=== PATIENT | female | born 1975 | race Caucasian/White ===

== ENCOUNTER 2018-11-18 12:05 | Inpatient (IN) | payer MEDICARE ==
[2018-11-18 16:54] VITALS: BMI 30.3
[2018-11-18] MEDS ORDERED: ZIPRASIDONE 20 MG VIAL IM PRN (17:02)
[2018-11-18] MEDS: HALOPERIDOL LACTATE 5 MG/ML 1 ML VIAL IM PRN (17:21)
[2018-11-18] MEDS: LORazepam 2 MG/ML INJ IM PRN (17:24)
[2018-11-19] MEDS: HALOPERIDOL LACTATE 5 MG/ML 1 ML VIAL IM PRN ×2 (00:20→18:10)
[2018-11-19] MEDS: LORazepam 2 MG/ML INJ IM PRN ×5 (05:21→19:21)
--- NOTE | 2018-11-19 10:01 | P.DS ---
Providers Date of admission: 11/18/18 15:58 Expected date of discharge: 11/19/18 Attending physician: Anderson Amador Consults: 11/18/18 17:05 Consult Physician Stat Consulting Provider: Eleni Moser Consult Reason/Comments: suicidal/homicidal/psychosis Do you want consulting provider notified?: Already Contacted Placement Type Exists?: Yes Primary care physician: [facility] Course: -Intentional polysubstance overdose , Tylenol and salicylate ingestion -S/P toxic and metabolic encephalopathy secondary to the above -Depression, Suicidal -Anxiety -Hypokalemia, resolved -Diabetes mellitus type 2 -Hypertension Please refer to [facility] DOcumentation on chart By Dr. Elizalde, Dr. Amador's H & P for specifics. Patient initially was initially brought into [facility],transferred to [facility] for psychiatry evaluation. Electrolyte have normalized, vital signs stable. Currently in soft restraints X 3. Patient is medically cleared for discharge to MHU, in a stable condition with her prognosis.. EXAM: General: Alert and oriented 3, no acute distress CV: Regular S1 and S2, no murmur rubs or gallops LUNGS: Respiratory effort unlabored, lungs clear with no rhonchi wheezing or crackles ABD: Soft, nontender, positive bowel sounds The impression and plan of care has been dictated as directed. : I performed a history and examination of this patient, discussed the same with the dictator. I agree with the dictator's note ,documented as a scribe. Any additional findings or plans will be noted. Time taken: 35 minutes Patient Condition at Discharge: Stable Plan - Discharge Summary Discharge Rx Participant: No Activity/Diet/Wound Care/Special Instructions: To mental health unit Haldol 5mg IM Q 6h PRN Ativan 2mg IM Q3H prn Discharge Disposition: TRANSFER TO PSYCH HOSP/UNIT
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
[2018-11-19 13:17] VITALS: RESP 16
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
[2018-11-19 21:53] VITALS: BP 135/87; PULSE 92; TEMP 98.5
== END 2018-11-19 22:25 | DRG 917 ==
LOC: 4MS4W 15:58
PROVIDERS: ADMIT Family Medicine; ATTEND Family Medicine
DX: T39.1X2A Poisoning by 4-Aminophenol derivatives, intentional self-harm, initial encounter (principal); G92 Toxic encephalopathy; T39.092A Poisoning by salicylates, intentional self-harm, initial encounter; E11.9 Type 2 diabetes mellitus without complications; E87.6 Hypokalemia; F31.9 Bipolar disorder, unspecified; G43.909 Migraine, unspecified, not intractable, without status migrainosus; F41.9 Anxiety disorder, unspecified; I10 Essential (primary) hypertension; Z78.1 Physical restraint status; Z95.0 Presence of cardiac pacemaker; Y92.9 Unspecified place or not applicable
CPT/HCPCS: 84132

== ENCOUNTER 2018-11-19 21:58 | Inpatient (IN) | payer MEDICARE, MEDICAID ==
[2018-11-19] MEDS ORDERED: MAGNESIUM HYDROXIDE 2,400 MG/10 ML CUP PO PRN (22:07)
[2018-11-19] MEDS ORDERED: MAG HYDROX/AL HYDROX/SIMETH 30 ML CUP PO PRN (22:07)
[2018-11-19] MEDS ORDERED: LORazepam 2 MG/ML INJ IM PRN (22:18)
[2018-11-19] MEDS: ZIPRASIDONE 20 MG VIAL IM PRN (23:01)
[2018-11-20] MEDS: LORazepam 1 MG TAB PO PRN ×4 (00:04→18:42)
[2018-11-20 07:43] LABS: Glucose,Whole Blood 128 mg/dL (75-99)
[2018-11-20 08:54] LABS: ALT 31 U/L (9-52); AST 45 U/L (14-36); African American GFR (CKD) >90 (>60 ml/min/1.73 sqM); Alkaline Phosphatase 85 U/L (38-126); Anion Gap 6 mmol/L; Blood Urea Nitrogen 13 mg/dL (7-17); Calcium 9.4 mg/dL (8.4-10.2); Carbon Dioxide 25 mmol/L (22-30); Chloride 110 mmol/L (98-107); Cholesterol 168 mg/dL (<200); Glucose 198 mg/dL (74-99); HDL Cholesterol 50 mg/dL (40-60); LDL Cholesterol,Calculated 86 mg/dL (0-99); Potassium 3.9 mmol/L (3.5-5.1); Sodium 141 mmol/L (137-145); Total Bilirubin 0.5 mg/dL (0.2-1.3); Total Protein 6.3 g/dL (6.3-8.2); Triglycerides 158 mg/dL (<150)
[2018-11-20] MEDS: ZIPRASIDONE 20 MG VIAL IM PRN (10:44)
[2018-11-20] MEDS ORDERED: HALOPERIDOL LACTATE 5 MG/ML 1 ML VIAL IM PRN (11:00)
[2018-11-20] MEDS ORDERED: LORazepam 2 MG/ML INJ IM PRN (11:02)
[2018-11-20] MEDS: ACETAMINOPHEN TAB 325 MG TAB PO PRN (11:58)
[2018-11-20 12:42] LABS: Glucose,Whole Blood 144 mg/dL (75-99)
[2018-11-20] MEDS: NICOTINE 21MG/24HR PATCH TRANSDERM SCH (14:53)
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
[2018-11-20 16:57] LABS: Glucose,Whole Blood 140 mg/dL (75-99)
[2018-11-20] MEDS: GABAPENTIN 300 MG CAP PO SCH ×2 (17:18→21:40)
[2018-11-20 18:22] LABS: Hemoglobin A1C 6.4 % (4.0-6.0)
[2018-11-20 20:17] LABS: Glucose,Whole Blood 154 mg/dL (75-99)
[2018-11-20] MEDS: ARIPiprazole 10 MG TAB PO SCH (21:39)
[2018-11-20] MEDS: MELATONIN 3 MG TABLET PO SCH (21:39)
[2018-11-20] MEDS: HALOPERIDOL 5 MG TAB PO PRN (21:40)
[2018-11-20] MEDS: BACITRACIN/POLYMYX 500-10,000 UNIT/GM OINT 14 GM TUBE TOPICAL SCH (22:15)
[2018-11-21] MEDS: LORazepam 1 MG TAB PO PRN ×5 (06:32→23:28)
[2018-11-21 06:40] LABS: Glucose,Whole Blood 127 mg/dL (75-99)
[2018-11-21] MEDS: NICOTINE 21MG/24HR PATCH TRANSDERM SCH (08:48)
[2018-11-21] MEDS: BACITRACIN/POLYMYX 500-10,000 UNIT/GM OINT 14 GM TUBE TOPICAL SCH ×2 (08:49→21:31)
[2018-11-21] MEDS: GABAPENTIN 300 MG CAP PO SCH ×3 (08:53→21:21)
[2018-11-21] MEDS: ACETAMINOPHEN TAB 325 MG TAB PO PRN ×3 (08:56→22:11)
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
[2018-11-21 12:38] LABS: Glucose,Whole Blood 131 mg/dL (75-99)
[2018-11-21] MEDS: HALOPERIDOL 5 MG TAB PO PRN ×2 (16:22→21:22)
[2018-11-21 17:35] LABS: Glucose,Whole Blood 130 mg/dL (75-99)
[2018-11-21] MEDS: IBUPROFEN 600 MG TAB PO PRN (18:20)
[2018-11-21 20:22] LABS: Glucose,Whole Blood 121 mg/dL (75-99)
[2018-11-21] MEDS: MELATONIN 3 MG TABLET PO SCH (21:20)
[2018-11-21] MEDS: cloNIDine HCL 0.1 MG TAB PO SCH (21:20)
[2018-11-21] MEDS: ARIPiprazole 10 MG TAB PO SCH (21:20)
[2018-11-22 06:31] LABS: Glucose,Whole Blood 141 mg/dL (75-99)
[2018-11-22] MEDS: LORazepam 1 MG TAB PO PRN ×4 (06:32→20:29)
[2018-11-22] MEDS: IBUPROFEN 600 MG TAB PO PRN ×3 (06:32→20:30)
[2018-11-22] MEDS: BACITRACIN/POLYMYX 500-10,000 UNIT/GM OINT 14 GM TUBE TOPICAL SCH ×2 (06:35→20:39)
[2018-11-22] MEDS ORDERED: metFORMIN 500 MG TAB PO SCH (07:30)
[2018-11-22] MEDS: cloNIDine HCL 0.1 MG TAB PO SCH ×2 (08:23→20:29)
[2018-11-22] MEDS: GABAPENTIN 300 MG CAP PO SCH ×3 (08:23→20:29)
[2018-11-22] MEDS: NICOTINE 21MG/24HR PATCH TRANSDERM SCH (08:23)
[2018-11-22] MEDS: ACETAMINOPHEN TAB 325 MG TAB PO PRN ×2 (11:33→15:41)
--- NOTE | 2018-11-22 12:08 | P.PN ---
Progress Note - Text Progress Note Date: 11/22/18 Interval history: Patient is seen in cross coverage today. She reports that she's been feeling more depressed today. She does describe discomfort with her arm today. She does not seem to voice any adverse psychotropic medication side effects. It sounds like she has been staying mostly in her room today. Mental status exam: She is alert and cooperative with the interview. Her speech is fluent, not rapid or pressured. She denies any current thoughts of harm to self, relay she had thoughts of harming herself yesterday. She does not voice any thoughts of harm to others. No evidence of active psychosis or agitation. Plan: Patient be maintained on current psychotropic medication regimen. We'll continue to monitor regarding any suicidal ideations. Continue to monitor for any psychotropic medication side effects. We'll continue to cover this patient through the weekend.
[2018-11-22 12:36] LABS: Glucose,Whole Blood 126 mg/dL (75-99)
[2018-11-22] MEDS: HALOPERIDOL 5 MG TAB PO PRN (13:45)
[2018-11-22 17:37] LABS: Glucose,Whole Blood 197 mg/dL (75-99)
[2018-11-22 20:23] LABS: Glucose,Whole Blood 152 mg/dL (75-99)
[2018-11-22] MEDS: MELATONIN 3 MG TABLET PO SCH (20:29)
[2018-11-22] MEDS: ARIPiprazole 10 MG TAB PO SCH (20:29)
[2018-11-23] MEDS: LORazepam 1 MG TAB PO PRN ×4 (03:58→20:14)
[2018-11-23 06:30] LABS: Glucose,Whole Blood 134 mg/dL (75-99)
[2018-11-23] MEDS: NICOTINE 21MG/24HR PATCH TRANSDERM SCH (08:18)
[2018-11-23] MEDS: cloNIDine HCL 0.1 MG TAB PO SCH ×2 (08:18→21:48)
[2018-11-23] MEDS: GABAPENTIN 300 MG CAP PO SCH ×3 (08:18→21:48)
[2018-11-23] MEDS: ACETAMINOPHEN TAB 325 MG TAB PO PRN (08:20)
[2018-11-23] MEDS: HALOPERIDOL 5 MG TAB PO PRN ×3 (08:21→21:47)
[2018-11-23] MEDS: BACITRACIN/POLYMYX 500-10,000 UNIT/GM OINT 14 GM TUBE TOPICAL SCH ×2 (10:21→21:50)
[2018-11-23] MEDS: IBUPROFEN 600 MG TAB PO PRN ×2 (12:52→21:48)
[2018-11-23 13:05] LABS: Glucose,Whole Blood 154 mg/dL (75-99)
--- NOTE | 2018-11-23 14:36 | P.PN ---
Progress Note - Text Progress Note Date: 11/23/18 Interval history: Patient is seen in cross coverage again today. She describes that she is going to groups but when she is not in group she is isolating to her room and she is sleeping a lot. She describes crying spells. She describes her mood fluctuating. She does not seem to voice any adverse psychotropic medication side effects. She does relays still discomfort with her arm. Mental status exam: She is alert and cooperative with the interview. Her speech is fluent, not rapid or pressured. Her thought processes are organized. Her mood is depressed. She admits to some ongoing thoughts about suicide but reports she feels safe here on the unit. Her affect is restricted. She does not show any agitation. She does describe having some irritability. No evidence of active psychosis. Plan: Patient will be maintained on current psychotropic medication regimen. Continue to monitor mood and monitor regarding any thoughts of suicide. Monitor for any psychotropic medication side effects.
[2018-11-23 17:56] LABS: Glucose,Whole Blood 152 mg/dL (75-99)
[2018-11-23 20:41] LABS: Glucose,Whole Blood 148 mg/dL (75-99)
[2018-11-23] MEDS: ARIPiprazole 10 MG TAB PO SCH (21:48)
[2018-11-23] MEDS: MELATONIN 3 MG TABLET PO SCH (21:48)
[2018-11-24] MEDS: LORazepam 1 MG TAB PO PRN ×4 (06:10→20:13)
[2018-11-24 06:39] LABS: Glucose,Whole Blood 135 mg/dL (75-99)
[2018-11-24] MEDS: cloNIDine HCL 0.1 MG TAB PO SCH ×2 (08:45→20:14)
[2018-11-24] MEDS: BACITRACIN/POLYMYX 500-10,000 UNIT/GM OINT 14 GM TUBE TOPICAL SCH ×2 (08:45→20:14)
[2018-11-24] MEDS: NICOTINE 21MG/24HR PATCH TRANSDERM SCH (08:45)
[2018-11-24] MEDS: GABAPENTIN 300 MG CAP PO SCH ×3 (08:46→20:14)
[2018-11-24] MEDS: HALOPERIDOL 5 MG TAB PO PRN ×3 (08:47→17:39)
[2018-11-24] MEDS: IBUPROFEN 600 MG TAB PO PRN (10:37)
[2018-11-24 12:06] LABS: Glucose,Whole Blood 199 mg/dL (75-99)
--- NOTE | 2018-11-24 12:31 | P.PN ---
Progress Note - Text Progress Note Date: 11/24/18 Interval History: Patient is a 43-year-old female who was seen today she reports that she continues to feel anxious and irritable and easily aggravated attending some groups but spending most of the time in her room sleeping. She states that she was up at 3 AM last night but has been sleeping a lot during the day she states that she has been angry and irritable and agitated at home but never like she was during this admission. She states she continues to feel depressed and sad and the suicidal thoughts continue telling me that she was discharged she would just go ahead and kill herself because she sees no reason to live. Patient reports that she has no side effects from the medication and has continued to request as needed Haldol and Ativan for her episodes of anger, and irritability. She states the pain in her left arm is improved using the ibuprofen and that the abrasions on her right arm have improved using the topical ointment. Patient states that when she was at home she was using marijuana to control her anger Mental Status: Appearance/Attitude: Patient is dressed appropriately, makes eye contact and was cooperative Behavior: Patient did not display any psychomotor agitation or retardation, patient remains easily irritated Speech/Language: Patient's speech is spontaneous of normal volume and rhythm and she is coherent Thought Process: Patient is goal-directed there is no evidence of loose associations or flight of ideas Thought Content: Patient denies any auditory or visual hallucinations no delusions or paranoid ideation or elicited. Patient continues to express a sense of hopelessness and worthlessness stating that she just wants to and continues to report feeling easily irritated, angry and on edge. Patient states that she slept until 3 AM last evening but states that she spends the bulk of her days in her room because the groups and other peers irritate her. She states that she is eating. Patient states that her sister visited her over the weekend and her children continue to refuse to contact her Suicidal/Homicidal Ideation: Patient reports continued suicidal thoughts with no current plan or intent to act states that she sees no reason to live and she denies any current homicidal ideation Sensorium/Cognition: Patient is alert and oriented to person, place, and time and her recent and remote memory are grossly intact Mood/Affect: Patient's mood remains depressed and her affect blunted Insight/Judgment: Patient's insight and judgment are fair Assessment: Patient continues to report feeling easily irritated and agitated requesting when necessary Haldol and Ativan, patient spends the bulk of her days in her room stating that the groups and peers irritate and agitate her. She is sleeping during the day states that her appetite is good. She reports a visit with her sister over the weekend went well but her children continue to refuse to contact her. Patient sees no reason to continue living and states that she continues to have suicidal thoughts and feels hopeless and worthless. Plan: Will increase patient's Abilify to 15 mg to target her mood symptoms and patient continues to require inpatient treatment to target her mood symptoms and suicidal ideation. Patient was encouraged to attend groups and activities and encouraged to continue to speak with staff when feeling irritable and agitated. color consultant's contacted regarding the patient's elevated blood sugars and will change her Accu-Cheks to fasting only unless ordered differently by the medical device assembler.
[2018-11-24] MEDS: ARIPiprazole 15 MG TAB PO SCH (20:13)
[2018-11-24] MEDS: MELATONIN 3 MG TABLET PO SCH (20:14)
[2018-11-25] MEDS: LORazepam 1 MG TAB PO PRN ×4 (04:59→22:42)
[2018-11-25] MEDS: IBUPROFEN 600 MG TAB PO PRN ×2 (05:00→22:42)
[2018-11-25 06:12] LABS: Glucose,Whole Blood 139 mg/dL (75-99)
[2018-11-25] MEDS: cloNIDine HCL 0.1 MG TAB PO SCH ×2 (08:52→22:31)
[2018-11-25] MEDS: GABAPENTIN 300 MG CAP PO SCH ×3 (08:52→22:31)
[2018-11-25] MEDS: NICOTINE 21MG/24HR PATCH TRANSDERM SCH (08:52)
[2018-11-25] MEDS: BACITRACIN/POLYMYX 500-10,000 UNIT/GM OINT 14 GM TUBE TOPICAL SCH ×2 (08:53→22:38)
[2018-11-25] MEDS: HALOPERIDOL 5 MG TAB PO PRN ×2 (08:54→15:37)
[2018-11-25] MEDS ORDERED: hydrOXYzine PAMOATE 25 MG CAP PO PRN (09:58)
--- NOTE | 2018-11-25 14:43 | P.PN ---
Progress Note - Text Progress Note Date: 11/25/18 Interval History: Patient is a 43-year-old female who was seen today and she reports that she continues to feel very depressed, states that she hates herself but is less irritable and states that she attempted to attend some groups today. She stated that she doesn't want to be here she wants to be home has no active suicidal plan but states that she does hate herself. Patient states that she spoke with her daughters and understands that they obtained temporary guardianship yesterday to help her with legal issues that she currently has. She states that in one month there will be a full hearing. She stated that her plans when she leaves here or to live in the [place] on the property where her father lives but cannot stay in the same home and that her youngest daughter wants her to move with her to [place] to live. Patient states that she slept about 6 hours last night and is been feeling more awake during the day. She continues to report feeling tearful and depressed and at times anxious and on edge. Patient states that she did use marijuana in the past on a daily basis to assist her anger and irritability Mental Status: Appearance/Attitude: Patient is neatly and appropriately dressed, makes eye contact and was cooperative. Behavior: Patient does not exhibit any psychomotor agitation or retardation Speech/Language: Patient's speech is spontaneous of normal volume and rhythm and she is coherent Thought Process: Patient is goal-directed there is no evidence of loose association or flight of ideas Thought Content: Patient denies any auditory or visual hallucinations no delusions or paranoid ideation is elicited. Patient continues to state that she hates herself feels extremely depressed and is less irritable. She states that she has no active suicidal plans but would like to . She feels that her life is not worth living. Patient states that she slept last night and has been eating. She states that she attempted to attend a group today because she was feeling less irritable. Patient does report feeling anxious and on edge. Suicidal/Homicidal Ideation: Patient reports no current homicidal ideation but continues to report hating herself, wanting to but no active plans or intent to act at this time Sensorium/Cognition: Patient is alert and oriented to person, place, and time and her recent and remote memory are grossly intact. Mood/Affect: His mood remains depressed and irritable and her affect is appropriate to her mood Insight/Judgment: Symptoms insight and judgment are fair Assessment: Patient continues to require when necessary medication receiving 3 doses of oral Haldol yesterday and 4 doses of oral Ativan, she has slept for 6 hours last night and attempted to attend a group this morning. She states she is feeling less irritable but remains depressed and tearful and states that she doesn't want to be here has no active suicidal plan but hates herself and wishes she was . She did however go on to talk about her discharge plans as well as the reasons that 2 of her daughters obtained temporary guardianship. Patient has been compliant with medication. Plan: Patient continue on Abilify 15 mg at bedtime and consider an increase tomorrow to 20 mg at bedtime to target her symptoms of depression. Patient and I also discussed the use and side effects of Vistaril 25 mg 4 times a day as needed to control her anxiety and to use this before using the Ativan but we'll continue to leave the Ativan and Haldol when necessary available should the patient feel agitated. Patient continues to require hospitalization to further stabilize her mood.
[2018-11-25] MEDS: ARIPiprazole 15 MG TAB PO SCH (22:31)
[2018-11-25] MEDS: MELATONIN 3 MG TABLET PO SCH (22:31)
[2018-11-26 06:17] LABS: Glucose,Whole Blood 143 mg/dL (75-99)
[2018-11-26] MEDS: LORazepam 1 MG TAB PO PRN ×4 (06:19→22:33)
[2018-11-26] MEDS: cloNIDine HCL 0.1 MG TAB PO SCH ×3 (07:14→21:06)
[2018-11-26] MEDS: NICOTINE 21MG/24HR PATCH TRANSDERM SCH (09:00)
[2018-11-26] MEDS: GABAPENTIN 300 MG CAP PO SCH ×3 (09:00→21:06)
[2018-11-26] MEDS ORDERED: cloNIDine HCL 0.1 MG TAB PO SCH (09:00)
[2018-11-26] MEDS: CITALOPRAM HYDROBROMIDE 10 MG TAB PO SCH (09:01)
[2018-11-26] MEDS: BACITRACIN/POLYMYX 500-10,000 UNIT/GM OINT 14 GM TUBE TOPICAL SCH ×2 (09:05→21:09)
--- NOTE | 2018-11-26 11:33 | P.PN ---
Progress Note - Text Progress Note Date: 11/26/18 Interval History: Patient is a 43-year-old female who was seen today and she states that the Vistaril made her more agitated yesterday. Patient states that she moved her room and slept better after that. She reports no current suicidal thoughts. She states that she is less irritable. She states that she tries to attend groups but when gets irritable or agitated she gets up and walks out. She states that she was upset yesterday because she was told she didn't have insurance and then discovered that her ex- had changed insurance companies and does have insurance. Patient states that she's gotten her car back from the impound lot and there is no damage to it. Patient states that she still depressed and worried about the legal consequences that led to her hospitalization, worried about where she will live when she leaves that she does not want to rely on her daughter. Patient states that she is anxious and depressed and is requesting the Ativan for anxiety. Mental Status: Appearance/Attitude: Patient is neatly dressed, makes eye contact and is cooperative. Behavior: Patient does not display any psychomotor agitation or retardation and is less irritable today Speech/Language: Patient's speech is spontaneous of normal volume and rhythm and she is coherent Thought Process: Patient is goal-directed there is no evidence of loose association or flight of ideas Thought Content: Patient denies any auditory or visual hallucinations and no delusions or paranoid ideation or elicited. She reports feeling less irritable but continuing to have difficulties with feeling anxious and states that she still feeling depressed. She worries about her discharge and any legal c onsequences, her living situation. She states that she slept better once her room was moved yesterday and her appetite is good Suicidal/Homicidal Ideation: Patient denies any current suicidal or homicidal ideation Sensorium/Cognition: Patient is alert and oriented to person, place, and time and her recent and remote memory grossly intact she states that she has trouble focusing when in groups. Mood/Affect: Patient's mood is less irritable and less depressed, her affect is appropriate to her mood Insight/Judgment: Patient's insight and judgment are fair Assessment: Patient required when necessary Haldol twice yesterday continues to request Ativan for her anxiety stating that the Vistaril made her feel more agitated after she took it. Patient attends some groups and states that she has trouble focusing and gets irritated in the groups and so leaves. She reported no suicidal thoughts today and states she is feeling less irritable and less depressed but concerned about where she will live when released from the hospital and legal consequences that may be pending. She states that she found out her car is out of the impound lot and that it is insured. Plan: Patient at [facility] will be increased to 20 mg at bedtime tonight she is not reporting any side effects. Will change the Ativan to every 6 hours and I discussed this with the patient. Patient and I discussed her anxiety and will begin Celexa at a low-dose to attempt to target her anxiety and she had side effects from the Vistaril and states that BuSpar was ineffective in the past. Patient continues to require hospitalization to further stabilize her mood and she was encouraged to use the Ativan only if needed.
[2018-11-26] MEDS: HALOPERIDOL 5 MG TAB PO PRN ×2 (12:24→18:36)
[2018-11-26] MEDS: ACETAMINOPHEN TAB 325 MG TAB PO PRN (15:10)
[2018-11-26] MEDS: MELATONIN 3 MG TABLET PO SCH (21:05)
[2018-11-27] MEDS: LORazepam 1 MG TAB PO PRN ×2 (04:24→21:20)
[2018-11-27] MEDS: GABAPENTIN 300 MG CAP PO SCH ×3 (09:20→21:18)
[2018-11-27] MEDS: NICOTINE 21MG/24HR PATCH TRANSDERM SCH (09:20)
[2018-11-27] MEDS: cloNIDine HCL 0.1 MG TAB PO SCH ×3 (09:21→21:17)
[2018-11-27] MEDS: BACITRACIN/POLYMYX 500-10,000 UNIT/GM OINT 14 GM TUBE TOPICAL SCH ×2 (09:21→21:26)
[2018-11-27] MEDS: CITALOPRAM HYDROBROMIDE 10 MG TAB PO SCH (09:21)
[2018-11-27] MEDS: IBUPROFEN 600 MG TAB PO PRN ×2 (09:22→21:19)
[2018-11-27] MEDS: HALOPERIDOL 5 MG TAB PO PRN ×2 (09:22→16:01)
--- NOTE | 2018-11-27 11:18 | P.PN ---
Progress Note - Text Progress Note Date: 11/27/18 Interval History: Patient is a 43-year-old female who states that she wants to get out of the hospital continues to have suicidal thoughts today she said she woke up in the middle of night and requested an Ativan. She requests Haldol when she is feeling suicidal and agitated. Patient continues to complain of anxiety which she describes as feeling her heart increase in rate, feeling sweaty and feeling panicky. Patient wants something for the anxiety and has been taking the Ativan for that. Patient states that she continues to not sleep well and is requesting something for sleep, she was on 300 mg of trazodone at the time of her admission. Patient states that she attends some groups but finds them mostly a waste of time and is irritated by most of her peers on the unit. Patient continues to insist that she wants to leave. Mental Status: Appearance/Attitude: Patient is neatly and appropriately dressed makes eye contact and is cooperative Behavior: Patient does not display any psychomotor agitation or retardation but remains irritable Speech/Language: Patient's speech is spontaneous of normal volume and rhythm and she is coherent Thought Process: Patient is goal-directed there is noted to loose associations or flight of ideas Thought Content: Patient denies auditory or visual hallucinations no delusions or paranoid ideation are elicited. Patient continues to insist that she wants to leave the hospital that this is making her more irritable and anxious. Patient states that she has been feeling suicidal but can't tell me why she has thoughts and states that she gets agitated when she has those thoughts. She also states that she is having panic attacks and describes an increased heart rate, feeling sweaty and panicky. Patient states that she is not sleeping well at night and is requesting something for sleep and states that she has been attending some groups but finds them down. Patient has been eating well Suicidal/Homicidal Ideation: Patient reports suicidal thoughts today and no current homicidal ideation and states that she has no plans or intent to act on her suicidal thoughts Sensorium/Cognition: Patient is alert and oriented to person, place, and time and her recent and remote memory are grossly intact Mood/Affect: Patient's mood remains irritable and her affect appropriate to her mood Insight/Judgment: Patient's insight and judgment are fair Assessment: Patient requested and was given Haldol when necessary twice yesterday Ativan 3 times on the and once early this morning. Patient continues to report suicidal thoughts today and states that she's feeling agitated when she is having the suicidal thoughts and this is when she requests the Haldol. Patient also states that she is anxious and this is why she continues to request the Ativan and wants something for her anxiety. Patient has reported to me the BuSpar was ineffective for her, Vistaril made her feel more agitated. Patient states that she is also not sleeping and had been taking 300 mg of trazodone as an outpatient to assist with her sleep. Patient continues to request discharge. Plan: Patient will continue on Abilify 20 mg at bedtime, Celexa 10 mg in the morning we'll increase her melatonin to 5 mg at bedtime and start trazodone 50 mg at bedtime to assist with sleep and I reviewed the use and side effects of trazodone with the patient. Patient was encouraged to not request the Ativan every 6 hours, we will continue to taper her off of Ativan as I discussed with the patient she would not be discharged on this medication. Patient was encouraged to attend groups and activities. Patient continues to require hospitalization to stabilize her mood.
[2018-11-27] MEDS ORDERED: BUTALB/APAP/CAFF 50-325-40MG TAB PO STA (12:24)
[2018-11-27] MEDS: ACETAMINOPHEN TAB 325 MG TAB PO PRN (16:01)
[2018-11-27 17:47] LABS: Glucose,Whole Blood 186 mg/dL (75-99)
[2018-11-27] MEDS: MELATONIN 5 MG TABLET PO SCH (21:17)
[2018-11-27] MEDS: traZODone HCL 50 MG TAB PO SCH (21:17)
[2018-11-28] MEDS: LORazepam 1 MG TAB PO PRN ×3 (02:19→20:13)
[2018-11-28 07:48] LABS: Glucose,Whole Blood 130 mg/dL (75-99)
[2018-11-28] MEDS: cloNIDine HCL 0.1 MG TAB PO SCH (07:50)
[2018-11-28] MEDS: NICOTINE 21MG/24HR PATCH TRANSDERM SCH (07:50)
[2018-11-28] MEDS: GABAPENTIN 300 MG CAP PO SCH ×3 (07:50→20:10)
[2018-11-28] MEDS: CITALOPRAM HYDROBROMIDE 10 MG TAB PO SCH (07:51)
[2018-11-28] MEDS: HALOPERIDOL 5 MG TAB PO PRN (07:52)
[2018-11-28] MEDS: BACITRACIN/POLYMYX 500-10,000 UNIT/GM OINT 14 GM TUBE TOPICAL SCH ×2 (07:53→20:13)
[2018-11-28] MEDS ORDERED: LORazepam 2 MG/ML INJ IM PRN (10:57)
--- NOTE | 2018-11-28 12:54 | P.PN ---
Progress Note - Text Progress Note Date: 11/28/18 Interval History: Patient is a 43-year-old female seen in her room because she reports that she continues to feel dizzy, she states she felt dizzy last night and fell but did not hit her head or injure anything. Patient has continued to complain of anxiety and has requested Ativan and Haldol as well as apparently requesting Haldol yesterday for headache. Patient continues to report poor sleep, stating she is up and down all night she is eating and states that she goes to some groups and activities. When I discussed with her my discontinuing the Haldol to see how effective her Abilify was she questioned whether I was "punishing me by discontinuing the Haldol". Mental Status: Appearance/Attitude: Patient is dressed appropriately, makes eye contact and is cooperative and was seen in her room due to complaints of feeling dizzy Behavior: Patient does not exhibit any psychomotor retardation or agitation Speech/Language: Patient's speech is spontaneous of normal volume and rhythm and she is coherent Thought Process: Patient is goal-directed there is no evidence of loose associations or flight of ideas Thought Content: Patient denies any auditory or visual hallucinations and no delusions or paranoid ideation or elicited. Patient continues to complain of anxiety, feeling panicky with increased heart rate and sweating and states that only the Ativan has been helpful. Patient also continues to complain of not sleeping well, states she is less irritable and is eating Suicidal/Homicidal Ideation: Patient denies any current suicidal or homicidal ideation Sensorium/Cognition: Patient is alert and oriented to person, place, and time and her recent and remote memory are grossly intact Mood/Affect: Patient's mood remains depressed and her affect blunted Insight/Judgment: Patient's insight and judgment are fair Assessment: Patient has taken Haldol when necessary 3 times in the last 24 hours and Ativan 2 mg 3 times in the last 24 hours, requesting medication for anxiety, headaches and continues to report poor sleep and now complaining of dizziness and had a fall yesterday. Patient continues to state that she is anxious describing an increased heart rate and feeling panicky she is much less irritable is been no episodes of agitation or threatening behavior on the unit and she denies suicidal thoughts today. Patient continues to report disrupted sleep and she is eating. Patient attends some groups and activities. Plan: Patient continue on Abilify 20 mg at bedtime, Celexa 10 mg in the morning, melatonin 5 mg at bedtime and trazodone 50 mg at bedtime will discontinue the Haldol oral when necessary medication to assess how the patient is doing on Abilify, decrease the Ativan or when necessary's to 1 mg 3 times a day and will continue to taper this. I have also discontinued the Catapres as the patient was not taking an antihypertensive prior to her admission and is now complaining of feeling dizzy and lightheaded. Patient continues to request as needed medication for a variety of complaints such as headache, anxiety and we need to assess the patient on fewer when necessary's prior to discharge and this was discussed with the patient viewed this as punishment. Patient continues to request discharge. Patient continues to require hospitalization to stabilize her mood.
[2018-11-28] MEDS: MELATONIN 5 MG TABLET PO SCH (20:09)
[2018-11-28] MEDS: traZODone HCL 50 MG TAB PO SCH (20:09)
[2018-11-29] MEDS: LORazepam 1 MG TAB PO PRN (04:23)
[2018-11-29] MEDS: IBUPROFEN 600 MG TAB PO PRN ×2 (05:28→23:20)
[2018-11-29] MEDS: NICOTINE 21MG/24HR PATCH TRANSDERM SCH (09:03)
[2018-11-29] MEDS: CITALOPRAM HYDROBROMIDE 10 MG TAB PO SCH (09:04)
[2018-11-29] MEDS: GABAPENTIN 300 MG CAP PO SCH ×3 (09:04→20:20)
[2018-11-29] MEDS: BACITRACIN/POLYMYX 500-10,000 UNIT/GM OINT 14 GM TUBE TOPICAL SCH ×2 (09:06→21:08)
[2018-11-29] MEDS: ACETAMINOPHEN TAB 325 MG TAB PO PRN (11:06)
[2018-11-29 12:39] LABS: Glucose,Whole Blood 74 mg/dL (75-99)
[2018-11-29] MEDS: hydrOXYzine PAMOATE 25 MG CAP PO PRN ×3 (13:14→21:01)
[2018-11-29] MEDS: traZODone HCL 50 MG TAB PO SCH (20:20)
[2018-11-29] MEDS: MELATONIN 5 MG TABLET PO SCH (20:20)
--- NOTE | 2018-11-29 21:56 | PN ---
PROGRESS NOTE DATE OF SERVICE: 11/29/2018 CHIEF COMPLAINT: The patient was agitated. She took an excessive amount of Fioricet. She drove erratically. INTERVAL HISTORY: The patient had a quiet evening last night. It was documented that she slept 5 hours. Today she has been up. She comes out in the day area. She interacts with others. She continues to report some anxiety. She feels that overall her medications have been helping. She thinks her mood is improving some. She was hopeful to have some medication that might work p.r.n. for some of the anxiety she gets into. She acknowledges she is struggling with the aftermath of the events that led to her coming into the hospital. She has significant legal issues and at this point she is not aware of what will transpire as the next event related to that. She has been attending groups. She seems to do well with group activities. She has been social with peers. She tolerates her psychotropic medications. MENTAL STATUS: Patient gave good eye contact. Psychomotor activity was a little restless. She answered questions appropriately. Her thoughts were clear, coherent, and goal directed. Her affect was blunted. Her mood reserved. She seemed somewhat distressed, though not significantly so. There was no indication of thought disorder. Cognition was clear. She was oriented and alert. She was ambulatory with normal gait and strength. There was no tremor, abnormal movements or rigidity. ASSESSMENT: I will continue the current diagnosis and treatment plan. I discussed with the patient options for treating anxiety. She does say that Vistaril has helped some in the past. I will start her on Vistaril 50 mg q.4 hours p.r.n. She has had some ups and downs with sleep. I will increase Desyrel to 100 mg. I reviewed medication issues with the patient. We will continue to focus on stabilization and discharge planning. MMODL / IJN: [id number] /
[2018-11-30] MEDS: hydrOXYzine PAMOATE 25 MG CAP PO PRN ×3 (00:46→11:00)
[2018-11-30] MEDS ORDERED: OLANZapine 5 MG TAB PO STA (00:54)
[2018-11-30 06:38] LABS: Glucose,Whole Blood 114 mg/dL (75-99)
[2018-11-30] MEDS ORDERED: amLODIPine 5 MG TAB PO STA (06:43)
[2018-11-30] MEDS: BACITRACIN/POLYMYX 500-10,000 UNIT/GM OINT 14 GM TUBE TOPICAL SCH (08:40)
[2018-11-30] MEDS: NICOTINE 21MG/24HR PATCH TRANSDERM SCH (08:41)
[2018-11-30] MEDS: GABAPENTIN 300 MG CAP PO SCH ×3 (08:41→20:28)
[2018-11-30] MEDS: CITALOPRAM HYDROBROMIDE 10 MG TAB PO SCH (08:41)
[2018-11-30] MEDS: ACETAMINOPHEN TAB 325 MG TAB PO PRN ×2 (11:01→18:36)
[2018-11-30] MEDS: IBUPROFEN 600 MG TAB PO PRN (13:51)
[2018-11-30] MEDS ORDERED: OLANZapine 5 MG TAB PO ONE (15:15)
[2018-11-30] MEDS: OLANZapine 5 MG TAB PO PRN ×2 (15:27→23:54)
[2018-11-30 17:25] LABS: Glucose,Whole Blood 113 mg/dL (75-99)
[2018-11-30] MEDS: MELATONIN 5 MG TABLET PO SCH (20:27)
[2018-11-30] MEDS: traZODone HCL 50 MG TAB PO SCH (20:28)
[2018-11-30] MEDS: LOSARTAN 25 MG TAB PO SCH (21:19)
--- NOTE | 2018-11-30 23:27 | PN ---
PROGRESS NOTE DATE OF SERVICE: 11/30/2018. CHIEF COMPLAINT: The patient was agitated. She took an excessive amount of Fioricet. She drove erratically. INTERVAL HISTORY: The patient has been doing fair. She seems to be making some progress overall. She had a quiet evening last night. She said she slept fair. Last night it was documented she slept 4 hours. Today she has been up. She comes out in the day area. She attends groups. She seems to be well engaged in group activities. She continues with some anxiety and requests p.r.n. medications now and then. Her p.r.n. medication has been Zyprexa. She continues on Abilify and Celexa as her main medications. The patient notes that her mood has been improving. She has a better outlook. She has had an increased blood pressure and was seen today by Dr. Sellers who adjusted her medications. She tolerates her psychotropic medications. MENTAL STATUS: Patient gave fairly good eye contact. Psychomotor activity was a little restless. She answered questions with direct responses. Her thoughts were clear. Her affect was in the reasonable range. Her mood was reserved though not clearly down or depressed. She did not appear to be significantly distressed. There was no indication of thought disorder. ASSESSMENT: I will continue the current diagnosis and treatment plan. I will continue psychotropic medications the same. Patient has been making progress. We discussed discharge planning issues. I reviewed her medications and long-term treatment issues. We will continue to focus on stabilization and discharge planning. ALEJANDRA / BLANCAN: [id number] /
[2018-12-01] MEDS: BACITRACIN/POLYMYX 500-10,000 UNIT/GM OINT 14 GM TUBE TOPICAL SCH ×3 (00:05→21:14)
[2018-12-01] MEDS: ACETAMINOPHEN TAB 325 MG TAB PO PRN (02:27)
[2018-12-01 06:33] LABS: Glucose,Whole Blood 166 mg/dL (75-99)
[2018-12-01] MEDS: OLANZapine 5 MG TAB PO PRN ×3 (07:12→19:13)
[2018-12-01] MEDS: NICOTINE 21MG/24HR PATCH TRANSDERM SCH (08:45)
[2018-12-01] MEDS: GABAPENTIN 300 MG CAP PO SCH ×3 (08:46→21:09)
[2018-12-01] MEDS: CITALOPRAM HYDROBROMIDE 10 MG TAB PO SCH (08:46)
[2018-12-01] MEDS: LOSARTAN 25 MG TAB PO SCH (08:46)
[2018-12-01] MEDS: IBUPROFEN 600 MG TAB PO PRN (11:53)
--- NOTE | 2018-12-01 14:30 | P.PN ---
Progress Note - Text Progress Note Date: 12/01/18 Interval History: Patient is a 43-year-old female who was seen today she reports that she is doing much better. Patient states with the changes to her medication and the addition of Zyprexa she is felt much calmer, less anxious and less irritable. She said her sleep is improved as well and is no longer having headaches as her blood pressure medication has also been adjusted. Patient states she is no longer feeling suicidal and states that she has spoken with her daughter about living in the [place] her father's house. She states that her father will assist her in paying for an attorney general to help her with charges that may be pending from her recent incident prior to coming to hospital. Patient states that she signed any side effects from the medication and is no longer reporting feeling anxious. States that she is sleeping and eating well. Mental Status: Appearance/Attitude: Patient is neatly and appropriately dressed, makes eye contact and is cooperative Behavior: Patient does not sling psychomotor agitation or retardation Speech/Language: Patient's speech is spontaneous of normal volume and rhythm and she is coherent Thought Process: Patient is goal-directed there is evidence of loose association or flight of ideas Thought Content: Patient denies any auditory or visual hallucinations and no delusions or paranoid ideation or elicited. Patient states that with the addition of the Zyprexa when necessary she is feeling much better, no longer feeling agitated or depressed and states that she is sleeping better and has no suicidal thoughts. She states that with the change to her blood pressure medication she is also feeling better and not having any headaches. She reports no longer feeling anxious. She reports that her appetite is good. Suicidal/Homicidal Ideation: Patient denies any current suicidal or homicidal ideation Sensorium/Cognition: Patient is alert and oriented to person, place, and time and her recent and remote memory are grossly intact Mood/Affect: Patient's mood is pleasant and her affect is appropriate Insight/Judgment: Patient's insight and judgment are fair Assessment: Patient's blood pressure medication was discontinued due to complaints of feeling lightheaded, her blood pressure then increased and she has now been placed in a different blood pressure medication with a much better response. Patient states she is no longer having headaches. Patient's Haldol and Ativan when necessary were discontinued and the patient was placed on Zyprexa 5 mg 3 times a day as needed and she reports a good response to the using this. Patient's trazodone was also increased to 100 mg at bedtime and she states that she is now sleeping well. Patient reports that she is no longer feeling irritable, anxious or depressed and angry and states that she is no longer having any suicidal thoughts. She states she sleeping and eating well and has been attending groups and activities. Plan: Patient will continue on Abilify 20 mg at bedtime and will also continue the Zyprexa 5 mg twice a day when necessary the time of her discharge as patient is reporting a good response to this and I reviewed with her the medication is in the same category as Abilify and that this would be a good temporizing measure, she will continue on the Celexa at 10 mg in the morning, trazodone 100 mg at bedtime, melatonin 5 mg at bedtime the patient and I discussed possible discharge tomorrow and she was agreeable with this plan. Patient states that delilah plans to live with her one daughter who is a coguardian in a fifth wheel behind her father's home. She states she feels comfortable with this plan and states that her father's agreed to help her with legal fees to hire an attorney general to assist in whatever charges are placed against her. Patient also continues on glipizide to control her blood sugars and she will follow-up with her primary care physician regarding her blood pressure and diabetes at the time of discharge.
[2018-12-01] MEDS: traZODone HCL 50 MG TAB PO SCH (21:09)
[2018-12-01] MEDS: MELATONIN 5 MG TABLET PO SCH (21:10)
[2018-12-02] MEDS: OLANZapine 5 MG TAB PO PRN ×3 (02:48→13:38)
[2018-12-02] MEDS: IBUPROFEN 600 MG TAB PO PRN (02:50)
[2018-12-02 02:54] VITALS: TEMP 98
[2018-12-02] MEDS ORDERED: LORazepam 1 MG TAB PO STA (03:15)
[2018-12-02 03:34] VITALS: BP 126/88; PULSE 92; RESP 18
[2018-12-02] MEDS: NICOTINE 21MG/24HR PATCH TRANSDERM SCH (08:20)
[2018-12-02] MEDS: GABAPENTIN 300 MG CAP PO SCH ×2 (08:20→15:07)
[2018-12-02] MEDS: CITALOPRAM HYDROBROMIDE 10 MG TAB PO SCH (08:20)
[2018-12-02] MEDS: LOSARTAN 25 MG TAB PO SCH (08:20)
[2018-12-02] MEDS: BACITRACIN/POLYMYX 500-10,000 UNIT/GM OINT 14 GM TUBE TOPICAL SCH (08:22)
[2018-12-02] MEDS ORDERED: LORazepam 0.5 MG TAB PO STA (08:42)
[2018-12-02 09:39] LABS: Glucose,Whole Blood 189 mg/dL (75-99)
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
== END 2018-12-02 16:32 | disposition home or self-care (01) | DRG 885 ==
LOC: 3MHU 21:58
PROVIDERS: ADMIT Psychiatry & Neurology Psychiatry; ATTEND Psychiatry & Neurology Psychiatry
DX: F31.4 Bipolar disorder, current episode depressed, severe, without psychotic features (principal); R45.851 Suicidal ideations; E11.40 Type 2 diabetes mellitus with diabetic neuropathy, unspecified; F41.0 Panic disorder [episodic paroxysmal anxiety]; I10 Essential (primary) hypertension; G43.909 Migraine, unspecified, not intractable, without status migrainosus; S40.811A Abrasion of right upper arm, initial encounter; F12.90 Cannabis use, unspecified, uncomplicated; R45.1 Restlessness and agitation; Z79.899 Other long term (current) drug therapy; Z91.14 Patient's other noncompliance with medication regimen; Z91.5 Personal history of self-harm; Z91.410 Personal history of adult physical and sexual abuse; Z62.810 Personal history of physical and sexual abuse in childhood; Z81.8 Family history of other mental and behavioral disorders; Z81.3 Family history of other psychoactive substance abuse and dependence; W19.XXXA Unspecified fall, initial encounter
CPT/HCPCS: 80053; 80061; 83036; 84443; 93005